=== PATIENT | male | born 1970 ===

== ENCOUNTER 2016-10-21 07:48 | Emergency (ER) | payer BC, OTHER ==
[2016-10-21 07:57] VITALS: BP 118/76
[2016-10-21] MEDS ORDERED: Ibuprofen TAB* 600 MG PO ONE (08:02)
[2016-10-21] MEDS ORDERED: Tetan/Diph/Pertus SYR(Tdap)* 0.5 ML SYR(BOOSTRIX) use SYR IM ONE (08:38)
--- NOTE | 2016-10-21 09:14 | RAD ---
Indication: Right hand injury. 3 views of the right middle finger demonstrates comminuted fracture distal tuft of the distal phalanx of the third digit. IMPRESSION: Comminuted crush injury distal phalanx of the third digit.
[2016-10-21] MEDS ORDERED: Cephalexin CAP* 500 MG PO ONE (09:37)
[2016-10-21] MEDS ORDERED: Acetaminop/Codeine 30 MG TAB* 1 TAB (300 MG/30 MG) PO ONE (10:03)
--- NOTE | 2016-11-23 17:10 | UC ---
Oc Segal Anna, scribed for Monae Randall MD on 10/21/16 at 0819 . Upper Extremity HPI - HPI Summary HPI Summary: Patient is a 46 y/o [place] [facility] [place] with sudden onset of constant, right middle finger pain that began at 0715 this morning. He describes the pain as throbbing and of severity 10/10. He was lifting weights when he smashed his finger between a 35 lb and 15 lb weight. He reports he is unsure of whether or not his tetanus shot is UTD. He is right handed. He does not take any medications or supplements. He denies any acute or chronic illness. - History of Current Complaint Chief Complaint: UCGeneralIllness Stated Complaint: FINGER LAC Hx Obtained From: Patient - Allergies/Home Medications Allergies/Adverse Reactions: Allergies Allergy/AdvReac Type Severity Reaction Status Date / Time No Known Allergies Allergy Verified 10/21/16 07:52 PMH/Surg Hx/FS Hx/Imm Hx Previously Healthy: Yes - Surgical History Surgical History: None - Family History Known Family History: Negative: Cardiac Disease, Diabetes - Social History Alcohol Use: None Alcohol Amount: recovering alcoholic 6 years Substance Use Type: None Smoking Status (MU): Never Smoked Tobacco Review of Systems Constitutional: Negative Skin: Negative Eyes: Negative ENT: Negative Respiratory: Negative Cardiovascular: Negative Gastrointestinal: Negative Genitourinary: Negative Motor: Negative Neurovascular: Negative Musculoskeletal: Arthralgia - right middle finger pain Neurological: Negative Psychological: Negative All Other Systems Reviewed And Are Negative: Yes Physical Exam Triage Information Reviewed: Yes Appearance: Well-Nourished Vital Signs: Initial Vital Signs Temp 96.1 F 10/21/16 07:52 Pulse 77 10/21/16 07:52 Resp 18 10/21/16 07:52 BP 118/76 10/21/16 07:52 Pulse Ox 96 10/21/16 07:52 Vital Signs Reviewed: Yes Eye Exam: Normal ENT Exam: Normal Neck exam: Normal - No adenopathy appreciated Respiratory Exam: Normal - Normal, no dyspnea, no tachypnea, normal respiratory rate Cardiovascular Exam: Normal - HR regular, good general skin color, good capillary refill Abdominal Exam: Normal Bowel Sounds: Positive: Present Musculoskeletal: Positive: Other: - Subungal hematoma encompassing bout 25% of finger. Looks like it is draining to a certain degree. Irregular laceration, radial volar pad, 1.7 length, .7 width. Does have ecchymosis and he is bleeding (oozing) lateral edges of his fingernails. Distal sensation to LT is present. CR is good, with the exception of eccymotic regions. Painful to bend. + swelling and tenderness dip region. Neurological Exam: Normal - Nonfocal, grossly intact see finger exam for detailed exam. Psychological Exam: Normal - Conversing easily and appropriately Skin Exam: Normal - No visible or reported rash Diagnostics - Radiology Finger XR Xray Interpretation: Positive (See Comments) Radiology Interpretation Completed By: Radiologist - IMPRESSION: Comminuted crush injury distal phalanx of the third digit. Re-Evaluation - Re-Evaluation First Eval Re-Evaluation Time: 09:23 Comment: Discussed results of XR with patient. Upper Extremity Course/Dx - Course Course Of Treatment: Declines analgesics other than motrin while here. At departure, however, he requests T#3. I will send with two T#3 tabs. He specifically denies drug addiction. But hx alcohol issues years ago. We had a long talk about this, as such he concurs no script for anything stronger than ibuprofen. 09:20. Reviewed xray report. Hand surgery distribution coordinator paged. D/w Dr. Norman. She will see Mr. Carlos connolly tomorrow or . Reviewed xray report. Considered below differential Dxs. - Differential Dx/Diagnosis Provider Diagnoses: Distal R 3rd finger fx. crush injury - Physician Notification/Consults Discussed Patient Care With: Dr. Norman (orthopedics) at 929. Patient will follow up with Dr. Norman. Discharge - Discharge Plan Condition: Stable Disposition: HOME Prescriptions: Cephalexin CAP* [Keflex 500 CAP*] 500 mg PO TID #30 cap Patient Education Materials: Finger Fracture (ED) Forms: *Work Release Referrals: [facility] [Outside] Stephie Norman MD [Medical Doctor] - Additional Instructions: Please follow up with your primary care provider, per routine. Follow up with Dr. Norman - tomorrow or . Elevated as much as possible, especially during the day. Wound care: Thin layer bacitracin once daily. Dry gauze, roll guaze. OK to shower with warm soapy water once daily. Avoid astringents (ie: no hydrogen peroxide, rubbing alcohol, etc). Avoid weight lifting until ok'd by Dr. Norman. Antibiotic as prescribed. Eat yogurt daily while taking antibiotic. Seek medical attention for worsening problems in the meantime. The documentation as recorded by the Oc brower Anna accurately reflects the service I personally performed and the decisions made by me, Monae Randall MD.
== END 2016-10-21 10:35 | disposition home or self-care (01) ==
LOC: UCEAST 07:48
DX: S62.632A Displaced fracture of distal phalanx of right middle finger, initial encounter for closed fracture (principal); W23.0XXA Caught, crushed, jammed, or pinched between moving objects, initial encounter; Y93.B3 Activity, free weights; Y92.9 Unspecified place or not applicable; Z23 Encounter for immunization
CPT/HCPCS: 73140; 90471; 90715; 99203; A9270-GY; G0463

== ENCOUNTER 2017-03-16 17:24 | Emergency (ER) | payer BC | END 2017-03-16 18:15 | disposition left against medical advice (07) | LOC: UCEAST 17:24 | DX: Z53.21 Procedure and treatment not carried out due to patient leaving prior to being seen by health care provider (principal) ==